=== PATIENT | male | born 1960 | race Caucasian/White ===

== ENCOUNTER 2016-09-22 12:25 | Inpatient (IN) | payer OTHER, MEDICAID ==
[2016-09-22] MEDS ORDERED: HYDROmorphONE/DILAUDID 1 MG/ML SYR IVP ONE ×2 (13:00→13:44)
[2016-09-22] MEDS ORDERED: ONDANSETRON 4 MG/2 ML VIAL IVP ONE (13:00)
[2016-09-22] MEDS ORDERED: FAMOTIDINE 20 MG/NACL 50 ML IV ONE (13:00)
[2016-09-22] MEDS ORDERED: NS 1,000 ML IV ONE (13:00)
[2016-09-22 13:05] LABS: % IMMATURE GRANULYOCYTES 0.3 % (0.0-1.1); ABSOLUTE IMMATURE GRANULOCYTES 0.02 10^3/uL (0.00-0.10); ADD DIFF? NO; ADD MORPH? NO; ADD SCAN? NO; ATYPICAL LYMPHOCYTE FLAG 0 (0-99); FRAGMENT RBC FLAG 0 (0-99); HEMATOCRIT 42.7 % (40.0-51.0); HEMOGLOBIN 15.9 g/dL (13.7-17.5); LEFT SHIFT FLG 10 (0-99); LIPEMIA HEMOLYSIS FLAG 90 (0-99); MEAN CELL HEMOGLOBIN 32.2 pg (27.9-34.1); MEAN CELL HEMOGLOBIN CONCENTR. 37.2 g/dL (32.4-36.7); MEAN CELL VOLUME 86.4 fL (81.5-99.8); MEAN PLATELET VOLUME 10.6 fL (8.7-11.7); PLATELET CLUMPS FLAG 0 (0-99); PLATELET COUNT 55 10^3/uL (150-400); RED BLOOD CELL COUNT 4.94 10^6/uL (4.40-6.38); RED CELL DISTRIBUTION WIDTH 13.2 % (11.5-15.2)
[2016-09-22 13:15] LABS: ALANINE AMINOTRANSFERASE 31 IU/L (21-72); ALBUMIN 4.3 g/dL (3.5-5.0); ALKALINE PHOSPHATASE 86 IU/L (38-126); ANION GAP 14 mEq/L (8-16); ASPARTATE AMINOTRANSFERASE 28 IU/L (17-59); BILIRUBIN,TOTAL 2.4 mg/dL (0.1-1.4); BILIRUBIN-CONJUGATED 0.1 mg/dL (0.0-0.5); BILIRUBIN-UNCONJUGATED 2.3 mg/dL (0.0-1.1); CALCIUM 8.9 mg/dL (8.5-10.4); CARBON DIOXIDE 22 mEq/l (22-31); CHLORIDE 104 mEq/L (97-110); CREATININE 0.7 mg/dL (0.7-1.3); GLOMERULAR FILTRATION RATE > 60; GLUCOSE 101 mg/dL (70-100); POTASSIUM 3.1 mEq/L (3.5-5.2); SODIUM 140 mEq/L (134-144); TOTAL PROTEIN 7.7 g/dL (6.3-8.2)
--- NOTE | 2016-09-22 14:15 | EDPHY ---
H & P Time Seen by Provider: 09/22/16 12:40 HPI/ROS: HPI Abdominal pain, history of C diff. 56-year-old male sent from his primary care physician's office. History of Clostridium difficile colitis. Patient was on a novel antibiotic therapy for this but has been off of antibiotics for the last month. He went to his primary care physician's office with complaint of worsening abdominal pain this is a Dr. Patria Corbett. He was then sent to the emergency department for evaluation and further management. Patient complains of worsening abdominal pain described mostly as lower in the left lower quadrant, sharp and stabbing and without radiation for the last several days. ROS: Constitutional: No fever, no chills. No weakness. Eyes: No discharge. No changes in vision. ENT: No sore throat. No nasal congestion or rhinorrhea. Respiratory: No cough. No shortness of breath. Cardiac: No chest pain, no palpitations. Gastrointestinal: As above, no vomiting, no diarrhea. Genitourinary: No hematuria. No dysuria or increased frequency with urination. Musculoskeletal: No back pain. No neck pain. No myalgias or arthralgias. Skin: No rashes. Neurological: No headache. No focal weakness or altered sensation. Past medical history: As above. Hepatitis-C, chronic back pain, idiopathic thrombocytopenia, enlarged spleen. Social history: Here by himself. Physical Exam: General Appearance: He appears uncomfortable and anxious. This patient is responding to questions appropriately and in full sentences. This patient appears well-hydrated and well-nourished. Eyes: Pupils equal and round no pallor or injection. No lid edema, erythema or injection. Respiratory: There are no retractions, lungs are clear to auscultation with good air movement bilaterally. Cardiovascular: Regular rate and rhythm. No murmur. Gastrointestinal: Abdomen is is firm, tenderness throughout, mostly in the lower abdomen, greater on the left lower quadrant, no masses, bowel sounds normal. No focal tenderness at McBurney's point. No Fernandez sign. Neurological: Motor sensory function is grossly intact. Cranial nerves are normal. Gait is normal. Skin: Warm and dry, no rashes. Musculoskeletal: Neck is supple and nontender. Extremities are symmetrical. All joints range without pain or impingement. Psychiatric: No agitation. No depression. Database: EKG: Imaging: CT scan of abdomen and pelvis without contrast: Significant for diffuse mesenteric edema. Likely secondary to cirrhosis and portal hypertension. No significant colitis seen, renal calculi noted. No other significant pathology. Results were discussed with staff radiologist Dr. Indra Leach. Procedures: Emergency department course: IV was placed. He was placed on a monitor. He was started on IV normal saline with 1 L to be given over the next hour. He was initially given 0.5 mg of IV hydromorphone, 4 mg of IV Zofran and 20 mg of IV Pepcid. Hydromorphone will be repeated IV as needed for pain. 2:15 p.m., patient sent for CT imaging of his abdomen and pelvis. We are trying to get a hold of his primary care physician who sent him here to get further information on him. 3:10 p.m., spoke with Dr. Lacey. The patient's primary care physician. The patient's emergency department workup in test results were discussed with her in detail. [place] He does not have any social structure to help him with his care. She requested we admit the patient for observation overnight and IV fluid hydration. 3:25 p.m., patient re-evaluated. He is resting comfortably at this time. Pain is well controlled currently. Results of diagnostic test discussed and plan for admission discussed. All of his questions were answered. 3:30 p.m., spoke with hospitalist, Dr. Mcgraw. Antibiotic administration will be deferred to the hospitalist service. Patient accepted for admission. Patient admitted in stable condition to the hospitalist service. Differential Diagnosis: The differential diagnosis on this patient includes but is not limited to diverticulitis, colitis, Clostridium difficile colitis, bowel obstruction, bowel perforation, abscess. This represents a partial list of diagnoses considered. These considerations are based on history, physical exam, past history, reassessment and diagnostic testing. Smoking Status: Current some day smoker Constitutional: Initial Vital Signs Temperature (C) 36.7 C 09/22/16 12:30 Heart Rate 98 09/22/16 12:30 Respiratory Rate 28 H 09/22/16 12:30 Blood Pressure 131/76 H 09/22/16 12:30 O2 Sat (%) 94 09/22/16 12:30 O2 Delivery Mode Room Air Allergies/Adverse Reactions: contrast dye Allergy (Uncoded 12/15/13 15:28) Home Medications: Medication Instructions Recorded No Home Meds 12/15/13 Medical Decision Making - Data Points Laboratory Results: Laboratory Results 09/22/16 13:02 09/22/16 13:02 09/22/16 09/22/16 14:15 13:02 WBC 7.40 10^3/uL (3.80-9.50) RBC 4.94 10^6/uL (4.40-6.38) Hgb 15.9 g/dL (13.7-17.5) Hct 42.7 % (40.0-51.0) MCV 86.4 fL (81.5-99.8) MCH 32.2 pg (27.9-34.1) MCHC 37.2 H g/dL (32.4-36.7) RDW 13.2 % (11.5-15.2) Plt Count 55 L 10^3/uL (150-400) MPV 10.6 fL (8.7-11.7) Neut % (Auto) 84.9 H % (39.3-74.2) Lymph % (Auto) 8.9 L % (15.0-45.0) [place] % (Auto) 5.3 % (4.5-13.0) Eos % (Auto) 0.3 L % (0.6-7.6) Baso % (Auto) 0.3 % (0.3-1.7) Nucleat RBC Rel Count 0.0 % (0.0-0.2) Absolute Neuts (auto) 6.29 10^3/uL (1.70-6.50) Absolute Lymphs (auto) 0.66 L 10^3/uL (1.00-3.00) Absolute Monos (auto) 0.39 10^3/uL (0.30-0.80) Absolute Eos (auto) 0.02 L 10^3/uL (0.03-0.40) Absolute Basos (auto) 0.02 10^3/uL (0.02-0.10) Absolute Nucleated RBC 0.00 10^3/uL (0-0.01) Immature Gran % 0.3 % (0.0-1.1) Immature Gran # 0.02 10^3/uL (0.00-0.10) Sodium 140 mEq/L (134-144) Potassium 3.1 L mEq/L (3.5-5.2) Chloride 104 mEq/L (97-110) Carbon Dioxide 22 mEq/l (22-31) Anion Gap 14 mEq/L (8-16) BUN 9 mg/dL (7-23) Creatinine 0.7 mg/dL (0.7-1.3) Estimated GFR > 60 Glucose 101 H mg/dL (70-100) Calcium 8.9 mg/dL (8.5-10.4) Total Bilirubin 2.4 H mg/dL (0.1-1.4) Conjugated Bilirubin 0.1 mg/dL (0.0-0.5) Unconjugated Bilirubin 2.3 H mg/dL (0.0-1.1) AST 28 IU/L (17-59) ALT 31 IU/L (21-72) Alkaline Phosphatase 86 IU/L (38-126) Total Protein 7.7 g/dL (6.3-8.2) Albumin 4.3 g/dL (3.5-5.0) Lipase 39.0 IU/L (23-300) Urine Color YELLOW Urine Appearance CLEAR Urine pH 6.0 (5.0-7.5) Ur Specific [place] 1.005 (1.002-1.030) Urine Protein NEGATIVE (NEGATIVE) Urine Ketones TRACE H (NEGATIVE) Urine Blood NEGATIVE (NEGATIVE) Urine Nitrate NEGATIVE (NEGATIVE) Urine Bilirubin NEGATIVE (NEGATIVE) Urine Urobilinogen NEGATIVE EU (0.2-1.0) Ur Leukocyte Esterase NEGATIVE (NEGATIVE) Urine RBC 1-3 /hpf (0-3) Urine WBC 1-3 /hpf (0-3) Ur Epithelial Cells NONE SEEN /lpf (NONE-1+) Ur Culture Indicated? NOT INDICATED (NI) Urine Glucose NEGATIVE (NEGATIVE) Stool Concentration Pending Stool Occult Bld Scrn POSITIVE H (NEGATIVE) Stool for White Cells 4+ H (NONE SEEN) Stool for RBCs 4+ H (NONE SEEN) Stool Ova & Parasites LIQUID ROMERO STOOL Parasite Trichrome Pending C. difficile Tox (PCR) POSITIVE H (NEGATIVE) Direct Microscop Exam NONE SEEN (NONE SEEN) Medications Given: Discontinued Medications Hydromorphone HCl (Dilaudid) 0.5 mg IVP EDNOW ONE Stop: 01/09/17 13:01 Last Admin: 09/22/16 13:14 Dose: Not Given Hydromorphone HCl (Dilaudid) 0.5 mg IVP EDNOW ONE Stop: 09/22/16 13:45 Last Admin: 09/22/16 14:10 Dose: Not Given Sodium Chloride (Ns) 1,000 mls @ 0 mls/hr IV ONCE ONE PRN Reason: Wide Open Stop: 09/22/16 13:01 Last Admin: 09/22/16 13:15 Dose: 1,000 mls Famotidine/Sodium Chloride (Pepcid 20 Mg (Premix)) 50 mls @ 200 mls/hr IV EDNOW ONE Stop: 09/22/16 13:14 Last Admin: 09/22/16 13:14 Dose: 50 mls Ondansetron HCl (Zofran) 4 mg IVP EDNOW ONE Stop: 09/22/16 13:01 Last Admin: 09/22/16 13:14 Dose: 4 mg Departure - Departure Disposition: [facility] Acute Clinical Impression: Abdominal pain, Colitis due to Clostridium difficile
[2016-09-22 14:30] LABS: COLOR YELLOW; LEUKOCYTE ESTERASE,URINE NEGATIVE (NEGATIVE); NITRITE,URINE NEGATIVE (NEGATIVE)
[2016-09-22 14:37] LABS: OCCULT BLOOD FECES POSITIVE (NEGATIVE)
[2016-09-22 14:42] LABS: FECES RBC 4+ (NONE SEEN); FECES WBC 4+ (NONE SEEN); O/P DESCRIPTION LIQUID TAN STOOL; O/P DIRECT NONE SEEN (NONE SEEN)
--- NOTE | 2016-09-22 15:12 | CT ---
CT Scan of the Abdomen and Pelvis (Without IV Contrast) Clinical Indications: Hep C and colitis. Left lower quadrant abdominal pain. Technique: No intravenous contrast was given. Multidetector helical CT imaging is performed from th e diaphragm to the symphysis pubis. Dose reduction techniques were utilized. Findings: The lung bases are clear. There is a nodular contour to the liver. Gallstones are noted. T he spleen is enlarged. There is mild mesenteric prominence, likely secondary to the patient's portal hypertension. Small bowel and colon are unremarkable. The appendix is visualized and normal. There is bilateral nephrolithiasis. There is a questionable area of calcification in versus adjacent to the u reter, series 4 image 242. There is degenerative disk disease with diskogenic sclerosis at L4-L5. Impression: 1. Cirrhosis with splenomegaly and portal hypertension. There is mild mesenteric edema, but no convin cing evidence of colitis or diverticulitis. 2. Questionable 1-mm distal right ureteral calcification. The patient is having no flank pain or vandana turia. 3. Nephrolithiasis of the kidneys. 4. Cholelithiasis. 5. Moderate DJD of the spine. Results discussed by Dr. Nehemiah Ramos to Dr. Geoff Ricketts on September 22, 2016 at 1504 hours.
[2016-09-22 15:25] LABS: CLOSTRIDIUM DIFFICILE DNA POSITIVE (NEGATIVE)
[2016-09-22] MEDS ORDERED: NS 1,000 ML IV SCH (15:45)
[2016-09-22] MEDS ORDERED: PROTOCOL POTASSIUM 1 DOSE MISC PRN (16:22)
[2016-09-22] MEDS ORDERED: ONDANSETRON 4 MG/2 ML VIAL IVP PRN (16:23)
[2016-09-22] MEDS ORDERED: HYDROCODONE/APAP 5/325 TAB PO PRN (16:23)
[2016-09-22] MEDS ORDERED: POTASSIUM CL 10 MEQ TAB PO ONE (16:35)
[2016-09-22] MEDS: VANCOMYCIN 125 MG/2.5 ML UDL PO SCH ×2 (17:01→20:53)
--- NOTE | 2016-09-22 17:10 | GHP ---
[f rep st] HISTORY AND PHYSICAL DATE OF ADMISSION: 09/22/2016 CHIEF COMPLAINT: Abdominal pain and diarrhea. HISTORY OF PRESENT ILLNESS: A 56-year-old male with a history of PTSD and recent diagnosis of C. dif ficile colitis who presented to his outpatient primary care provider today with persistent stooling a nd abdominal discomfort. The patient was treated in the preceding weeks with a course of Augmentin f or a cat scratch. Post completion of his treatment, patient developed voluminous diarrhea, which in the clinic was confirmed as C. difficile. The patient was initiated on oral Flagyl, and re-presented to the clinic with persistent high-volume stooling. In the emergency department, patient is reporti ng lower abdominal pain, voluminous stools, on some days preceding presentation up to 25 stools a day . Reports some visual blood in his stool. Denies any dysuria. Denies any hematuria. The patient h as had some severe nausea, he thinks related to pain, but no vomiting. Denies chest pain, shortness of breath, vision changes, headache, palpitations, lightheadedness. Did have some dizziness the even ing prior to presentation. He does report that his oral intake has been decreased during this acute illness. PAST MEDICAL HISTORY: 1. PTSD. 2. Recent C. difficile colitis diagnosis. SOCIAL HISTORY: Patient is a previous alcohol abuser, has been sober for 20 years. Quit smoking at age 16, and denies any illicit drugs or marijuana. FAMILY HISTORY: Significant for alcoholism. REVIEW OF SYSTEMS: Ten-point review of systems is negative, with the exception of that reported in t he HPI. PHYSICAL EXAMINATION: VITAL SIGNS: Blood pressure 141/91, heart rate 78, respiratory rate 16, 99% o n room air, temperature 36.8. GENERAL: This is a healthy-appearing middle-aged male in mild distres s. HEENT: Notable for dry mucous membranes. Eye exam is negative for any icterus. CARDIAC: Patie nt is regular rate and rhythm. PULMONARY: Good respiratory effort. Clear to auscultation bilateral ly. GASTROINTESTINAL: Abdomen is soft. The patient has positive bowel sounds. Has tenderness to p alpation in the left lower and left upper quadrants. No rebound or guarding. MUSCULOSKELETAL: Nega tive for any lower extremity edema. SKIN: Negative for any rashes. NEUROLOGIC: The patient is cecy rt and oriented x3. PSYCHIATRIC: He is cooperative with interview and examination. DATA: CT of the abdomen, which I personally reviewed and interpreted, shows cirrhosis, per Radiology , with mild mesenteric edema. No distinct colitis described by Radiology. LABORATORY: White count 7.4, hematocrit 42.7, platelets of 55. Potassium is 3.1, creatinine is 0.7. Liver function tests normal, with the exception of a total bilirubin of 2.4. Urinalysis is negativ e. Stool study positive for C. difficile. Positive for white and red blood cells. ASSESSMENT AND PLAN: This is a 56-year-old male, presenting with Clostridium difficile colitis. 1. Acute Clostridium difficile colitis. The patient has been on previous oral Flagyl, with persiste nt high-volume stooling and abdominal pain. Will switch to oral vancomycin on admission. Will aggre ssively fluid resuscitate with IV normal saline, and treat with pain medications and antiemetics as n eeded. 2. Thrombocytopenia. The patient's platelet count is 55,000, which appears consistent to previous m easurements. Will hold on Lovenox prophylaxis. 3. Posttraumatic stress disorder. Will continue the patient's home medications once reconciled. 4. Hypokalemia, suspect secondary to diarrhea. Will place the patient on the potassium protocol. 5. Prophylaxis. Holding secondary to thrombocytopenia. DIET: As tolerated. DISPOSITION: I expect in less than 2 midnights, as patient requires hydration, and should be safe fo r disposition in the morning. Discussed the case with the emergency room physician, as well as his [facility] care provider, Dr. Lacey. /[id number]/MODL
[2016-09-22] MEDS: oxyCODONE IR 5 MG TAB PO PRN ×3 (17:52→23:22)
[2016-09-22] MEDS ORDERED: TEMAZEPAM 15 MG CAP PO PRN (20:34)
[2016-09-22] MEDS: traMADol 50 MG TAB PO PRN (20:53)
[2016-09-23] MEDS: oxyCODONE IR 5 MG TAB PO PRN ×7 (03:04→22:31)
[2016-09-23] MEDS: VANCOMYCIN 125 MG/2.5 ML UDL PO SCH ×4 (04:51→19:59)
[2016-09-23 04:52] VITALS: RESP 18
[2016-09-23 05:10] LABS: % IMMATURE GRANULYOCYTES 0.2 % (0.0-1.1); ABSOLUTE IMMATURE GRANULOCYTES 0.01 10^3/uL (0.00-0.10); ADD DIFF? NO; ADD MORPH? NO; ADD SCAN? NO; ATYPICAL LYMPHOCYTE FLAG 0 (0-99); FRAGMENT RBC FLAG 0 (0-99); HEMATOCRIT 38.8 % (40.0-51.0); HEMOGLOBIN 13.8 g/dL (13.7-17.5); LEFT SHIFT FLG 0 (0-99); LIPEMIA HEMOLYSIS FLAG 90 (0-99); MEAN CELL HEMOGLOBIN 31.9 pg (27.9-34.1); MEAN CELL HEMOGLOBIN CONCENTR. 35.6 g/dL (32.4-36.7); MEAN CELL VOLUME 89.6 fL (81.5-99.8); MEAN PLATELET VOLUME 11.8 fL (8.7-11.7); PLATELET CLUMPS FLAG 10 (0-99); RED BLOOD CELL COUNT 4.33 10^6/uL (4.40-6.38); RED CELL DISTRIBUTION WIDTH 13.3 % (11.5-15.2)
[2016-09-23 05:12] LABS: PLATELET COUNT 48 10^3/uL (150-400)
[2016-09-23 06:09] LABS: PLATELET ESTIMATE DECREASED (ADEQ)
[2016-09-23 06:41] LABS: ANION GAP 9 mEq/L (8-16); CALCIUM 8.4 mg/dL (8.5-10.4); CARBON DIOXIDE 22 mEq/l (22-31); CHLORIDE 111 mEq/L (97-110); CREATININE 0.8 mg/dL (0.7-1.3); GLOMERULAR FILTRATION RATE > 60; GLUCOSE 90 mg/dL (70-100); SODIUM 142 mEq/L (134-144)
--- NOTE | 2016-09-23 10:40 | HOSPPROG ---
Hospitalist Progress Note Assessment/Plan: 56-year-old with a history of chronic mental illness, PTSD presents with ongoing diarrhea thought secondary to C diff colitis. Over night the nurse documented 1 BM however the patient states he has had multiple BMs through the night and in fact nearly fainted in the bathroom. He became quite agitated with me when I confronted him with the fact that he may not be having as many stools as he is stating he is. He states he cannot go home because his house is under to have fetus no and he keeps fainting on the way to the bathroom. Vital signs have remained stable here he is eating well and electrolytes are normal despite his complaints of 20-30 BMs per day. He does have a positive C diff PCR which may remain positive despite treatment and his CT scan was reviewed which showed no evidence of colitis. Patient states he did not tell the nurse all the times he went to the bathroom but agrees to do that at this time. # C diff colitis: Patient with multiple BMs by history but not supported by nursing staff. * Monitor him today told him he needs to report every BM and let us see it * Continue p.o. Vanco * Will stop IV fluids and monitor his electrolytes and see if they remain stable overnight * If he does remain stable he can likely be discharged, although the patient states he cannot make it overnight. Will have PT see him to confirm his strength. * Will need greater than 2 midnight stay given his c.diff, mental illness and difficult coping skills to deal with disease at this time. # chronic mental illness with PTSD and anger issues. He said he is followed at [facility] will ask for the psychiatric nurse to come talk with him today # cirrhosis was with chronic thrombocytopenia likely secondary to alcohol use # DVT prophylaxis: Patient is up and around he is low risk otherwise and has low platelets will encourage ambulation Subjective: Patient new to me chart reviewed. Gets agitated quite easily and angry has been yelling at nursing staff throughout the morning. Complains of severe abdominal pain but CT is unremarkable Objective: Vital Signs Temp Pulse Resp BP Pulse Ox 36.3 C 98 18 129/89 H 95 09/23/16 09:25 09/23/16 08:00 09/23/16 08:00 09/23/16 08:00 09/23/16 08:00 Laboratory Results 09/23/16 04:50 09/23/16 04:50 09/22/16 09/23/16 09/24/16 05:59 05:59 05:59 Intake Total 2600 Balance 2600 - Physical Exam Constitutional: no apparent distress, obese Eyes: PERRL, EOMI Ears, Nose, Mouth, Throat: moist mucous membranes Cardiovascular: regular rate and rhythym, no murmur, rub, or gallop Respiratory: no respiratory distress, no rales or rhonchi, reduced air movement Gastrointestinal: normoactive bowel sounds, tenderness (Diffusely), rebound ( Voluntary), No distension Genitourinary: no bladder fullness Skin: warm, normal color Musculoskeletal: normal joint ROM, no joint effusions Neurologic: AAOx3 Psychiatric: agitated ICD10 Worksheet Patient Problems: Problems Problem Status Diagnosed Abdominal pain Acute Clostridium difficile colitis Acute C. difficile diarrhea Acute 08/29/16
[2016-09-23] MEDS: traMADol 50 MG TAB PO PRN (10:53)
[2016-09-23 15:23] LABS: O/P CONCENTRATION NONE SEEN (NONE SEEN)
[2016-09-23 16:09] VITALS: O2SAT 96
[2016-09-23] MEDS: TEMAZEPAM 15 MG CAP PO PRN (22:31)
[2016-09-24] MEDS: TEMAZEPAM 15 MG CAP PO PRN (01:35)
[2016-09-24] MEDS: oxyCODONE IR 5 MG TAB PO PRN ×3 (01:35→10:17)
[2016-09-24 05:13] LABS: HEMATOCRIT 38.7 % (40.0-51.0); HEMOGLOBIN 13.9 g/dL (13.7-17.5); LIPEMIA HEMOLYSIS FLAG 90 (0-99); MEAN CELL HEMOGLOBIN 32.1 pg (27.9-34.1); MEAN CELL HEMOGLOBIN CONCENTR. 35.9 g/dL (32.4-36.7); MEAN CELL VOLUME 89.4 fL (81.5-99.8); PLATELET CLUMPS FLAG 50 (0-99); RED BLOOD CELL COUNT 4.33 10^6/uL (4.40-6.38); RED CELL DISTRIBUTION WIDTH 13.2 % (11.5-15.2)
[2016-09-24 05:16] LABS: PLATELET COUNT 39 10^3/uL (150-400)
[2016-09-24] MEDS: VANCOMYCIN 125 MG/2.5 ML UDL PO SCH ×2 (05:24→11:36)
[2016-09-24 05:32] LABS: ALANINE AMINOTRANSFERASE 35 IU/L (21-72); ALBUMIN 3.8 g/dL (3.5-5.0); ALKALINE PHOSPHATASE 64 IU/L (38-126); ANION GAP 6 mEq/L (8-16); ASPARTATE AMINOTRANSFERASE 24 IU/L (17-59); BILIRUBIN,TOTAL 1.4 mg/dL (0.1-1.4); CALCIUM 8.4 mg/dL (8.5-10.4); CARBON DIOXIDE 25 mEq/l (22-31); CHLORIDE 108 mEq/L (97-110); CREATININE 0.7 mg/dL (0.7-1.3); GLOMERULAR FILTRATION RATE > 60; GLUCOSE 81 mg/dL (70-100); POTASSIUM 4.1 mEq/L (3.5-5.2); SODIUM 139 mEq/L (134-144); TOTAL PROTEIN 6.4 g/dL (6.3-8.2)
[2016-09-24 06:17] LABS: PLATELET ESTIMATE DECREASED (ADEQ)
[2016-09-24 09:14] VITALS: BP 141/86; PULSE 70; TEMP 97.4
[2016-09-24 09:54] LABS: O/P TRICHROME NONE SEEN (NONE SEEN)
[2016-09-24] MEDS: traMADol 50 MG TAB PO PRN (10:17)
[2016-09-24] MEDS ORDERED: oxyCODONE IR 5 MG TAB PO ONE (11:30)
--- NOTE | 2016-09-24 17:17 | PDDCSUM ---
Discharge Summary Discharge Summary: DISCHARGE SUMMARY FOLLOW-UP ITEMS: Follow-up number of bowel movements DATE OF ADMISSION: 09/22/2016 DATE OF DISCHARGE: 09/24/2016 DISCHARGE DIAGNOSES: 1. Acute C difficile diarrhea 2. Chronic mental health issues 3. Thrombocytopenia CONSULTATIONS: None PROCEDURES / IMAGING: CT of the abdomen and pelvis demonstrating cirrhosis, portal hypertension, possible distal ureteral stone, nephrolithiasis, cholelithiasis, no evidence of colitis CHIEF COMPLAINT: Diarrhea SUBJECTIVE: Patient reports his diarrhea has improved PHYSICAL EXAM ON DISCHARGE: Systolic blood pressure 131/40, heart rate 60, afebrile overnight, satting well on room air, negative orthostatics, alert awake oriented x3 no apparent distress , patient is quite tangential but he is redirectable LABS ON DISCHARGE: C diff PCR positive, stool culture negative Shiga toxins, fecal occult blood positive, fecal leukocytes positive, lipase negative, liver panel negative, urinalysis ketones, creatinine 0.7, potassium 4.1, white blood count 3800, hemoglobin 13.9, platelets [id number] HOSPITAL COURSE BY PROBLEM: 1. Acute C difficile diarrhea. Patient presented with a reported significant amount of diarrhea, C diff PCR positive, unclear previous methods of treatment. Patient's diarrhea significantly improved with oral vancomycin, he will be discharged with 125 mg 4 times daily for a total of 2 weeks of treatment and follow up with his PCP thereafter. The patient did not demonstrate overt colitis on CT imaging, but he required extended, inpatient hospitalization given his ongoing, significant diarrhea and risk of hypovolemia requiring IV fluids and aggressive monitoring. His orthostatics were negative at time of discharge. 2. Chronic mental health issues. The patient reports that he has significant mental health issues, although these remain on characterized at this time. It was difficult to differentiate fact from perception, but our staff attempted to this as best we could. The patient is being discharged with a positive a mental health outlook and he reports that he is able to a care for himself and make follow-up appointments with his PCP as well as mental health practitioners. 3. Thrombocytopenia. Chronic, review of his previous lab data demonstrates that his platelet count has remained stable for quite some time and is most likely secondary to his underlying cirrhosis secondary to history of alcoholism although he has not consumed alcohol in 18 years, per his report. He does not require further workup for his thrombocytopenia at this time. DISCHARGE MEDICATIONS: Please see official discharge medication reconciliation sheet in chart , vancomycin 125 mg q.6 hours for 12 subsequent days. DISCHARGE INSTRUCTIONS: Please follow up with her PCP in approximately 2 weeks time. TIME SPENT: Greater than 30 minutes were spent on direct patient care, as well as discharge planning and preparation.
== END 2016-09-24 13:12 | disposition home or self-care (01) | DRG 373 ==
LOC: F1N 16:03 → OBSVTOIN 09-23 13:37 → INTOOBSV 09-23 13:37
PROVIDERS: ADMIT Hospitalist; ATTEND Hospitalist
DX: A04.7 Enterocolitis due to Clostridium difficile (principal); E87.6 Hypokalemia; D69.6 Thrombocytopenia, unspecified; F43.10 Post-traumatic stress disorder, unspecified; R16.1 Splenomegaly, not elsewhere classified; B19.20 Unspecified viral hepatitis C without hepatic coma; M54.9 Dorsalgia, unspecified; Z87.891 Personal history of nicotine dependence
CPT/HCPCS: G0378; J2405

== ENCOUNTER 2016-09-25 15:29 | Emergency (ER) | payer OTHER, MEDICAID ==
[2016-09-25 15:41] VITALS: RESP 20
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
[2016-09-25] MEDS ORDERED: ONDANSETRON 4 MG/2 ML VIAL ONE (16:04)
[2016-09-25] MEDS ORDERED: HYDROmorphONE/DILAUDID 1 MG/ML SYR ONE (16:19)
[2016-09-25] MEDS ORDERED: HYDROmorphONE/DILAUDID 1 MG/ML SYR IVP ONE (16:24)
[2016-09-25] MEDS ORDERED: ONDANSETRON 4 MG/2 ML VIAL IVP ONE (16:24)
[2016-09-25] MEDS ORDERED: NS 1,000 ML IV ONE (16:24)
[2016-09-25 16:32] LABS: % IMMATURE GRANULYOCYTES 0.5 % (0.0-1.1); ABSOLUTE IMMATURE GRANULOCYTES 0.02 10^3/uL (0.00-0.10); ADD DIFF? NO; ADD MORPH? NO; ADD SCAN? NO; ATYPICAL LYMPHOCYTE FLAG 0 (0-99); FRAGMENT RBC FLAG 0 (0-99); HEMATOCRIT 41.5 % (40.0-51.0); HEMOGLOBIN 14.8 g/dL (13.7-17.5); LEFT SHIFT FLG 0 (0-99); LIPEMIA HEMOLYSIS FLAG 90 (0-99); MEAN CELL HEMOGLOBIN 31.4 pg (27.9-34.1); MEAN CELL HEMOGLOBIN CONCENTR. 35.7 g/dL (32.4-36.7); MEAN CELL VOLUME 88.1 fL (81.5-99.8); MEAN PLATELET VOLUME 12.2 fL (8.7-11.7); PLATELET CLUMPS FLAG 30 (0-99); RED BLOOD CELL COUNT 4.71 10^6/uL (4.40-6.38)
[2016-09-25 16:42] LABS: PLATELET COUNT 49 10^3/uL (150-400)
[2016-09-25 17:11] LABS: PLATELET ESTIMATE DECREASED (ADEQ)
[2016-09-25 17:29] LABS: ANION GAP 11 mEq/L (8-16); CALCIUM 8.6 mg/dL (8.5-10.4); CARBON DIOXIDE 25 mEq/l (22-31); CHLORIDE 104 mEq/L (97-110); CREATININE 0.7 mg/dL (0.7-1.3); GLOMERULAR FILTRATION RATE > 60; GLUCOSE 104 mg/dL (70-100); POTASSIUM 3.7 mEq/L (3.5-5.2); SODIUM 140 mEq/L (134-144)
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
[2016-09-25] MEDS ORDERED: OXYCODONE/APAP 5/325 TAB ONE (20:39)
[2016-09-25] MEDS ORDERED: oxyCODONE IR 5 MG TAB ONE (20:43)
[2016-09-25] MEDS ORDERED: CYCLOBENZAPRINE 10 MG TAB PO ONE (20:49)
[2016-09-25] MEDS ORDERED: oxyCODONE IR 5 MG TAB PO ONE (20:50)
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
[2016-09-25 21:58] VITALS: BP 125/77; PULSE 68; TEMP 98.2; O2SAT 97
--- NOTE | 2016-09-25 22:35 | DX ---
Thoracic Spine, Two Views History: Back pain. Findings: Mild dextroscoliosis. Moderate degenerative disk disease mid to lower thoracic spine. No evidence of acute compression fracture. Mild compression deformity midthoracic spine appears simila r to the previous study from January 2016. Impressions 1. Degenerative thoracic spine, with dextroscoliosis. 2. No acute compression fractures.
== END 2016-09-25 22:28 | disposition home or self-care (01) ==
LOC: EDUNIT# → EDBD
DX: S16.1XXA Strain of muscle, fascia and tendon at neck level, initial encounter (principal); M54.42 Lumbago with sciatica, left side; F17.200 Nicotine dependence, unspecified, uncomplicated; V89.2XXA Person injured in unspecified motor-vehicle accident, traffic, initial encounter; Y92.410 Unspecified street and highway as the place of occurrence of the external cause; Y93.89 Activity, other specified
CPT/HCPCS: 70450; 72070; 72125; 72128; 72131; 74176; 96361; 96374; 96375; 99285; J1170; J2405

== ENCOUNTER → 2017-04-15 | Outpatient (CLI) | payer OTHER, MEDICAID | LOC: FIMAGING 08:24 | PROVIDERS: ATTEND Physician Assistant | DX: K74.69 Other cirrhosis of liver (principal); K80.20 Calculus of gallbladder without cholecystitis without obstruction; N28.1 Cyst of kidney, acquired ==